=== PATIENT | female | born 1960 | race Caucasian/White ===

== ENCOUNTER → 2016-03-18 | Outpatient (CLI) | payer OTHER ==
[~2016-03-18] VITALS: Ht 152.4 cm; Wt 32.0 kg
[~2016-03-18] MED LIST: CALC-784 PO; CEPHA2505L PO; LIDE560S TP
[2016-03-18 12:12] VITALS: BP 119/68
== END | disposition home or self-care (01) ==
LOC: HBOWC 11:40
PROVIDERS: ATTEND Emergency Medicine
DX: L89.153 Pressure ulcer of sacral region, stage 3 (principal); M16.0 Bilateral primary osteoarthritis of hip; G80.9 Cerebral palsy, unspecified
CPT/HCPCS: 97597; G0463

== ENCOUNTER → 2016-04-03 | Outpatient (CLI) | payer OTHER ==
[2016-04-03 12:23] VITALS: BP 111/58
== END | disposition home or self-care (01) ==
LOC: HBOWC 11:40
PROVIDERS: ATTEND Emergency Medicine
DX: L89.153 Pressure ulcer of sacral region, stage 3 (principal); G80.9 Cerebral palsy, unspecified; M16.0 Bilateral primary osteoarthritis of hip
CPT/HCPCS: 97597